=== PATIENT | male | born 1960 | race Caucasian/White ===

== ENCOUNTER 2017-11-18 19:57 | Observation (INO) | payer BC ==
[2017-11-18] MEDS ORDERED: Sodium Chloride 0.9% 2.5 ML Syringe FLUSH PRN (20:01)
[2017-11-18] MEDS ORDERED: Sodium Chloride 0.9% 10 ML Syringe FLUSH PRN (20:01)
[2017-11-18] MEDS ORDERED: Nitroglycerin 0.4 MG Tab.SL SL ONE (20:01)
--- NOTE | 2017-11-18 20:02 | EDM.PDOC ---
ED HPI GENERAL MEDICAL PROBLEM - General Stated Complaint: UNK Time Seen by Provider: 11/18/17 19:57 Source of Information: Reports: Patient, EMS History Limitations: Reports: No Limitations - History of Present Illness INITIAL COMMENTS - FREE TEXT/NARRATIVE: HISTORY AND PHYSICAL: History of present illness: [Patient comes to the emergency room and ambulance after complaining of left- sided chest pain. The pain started at 6:30 pm and has been constant. He describes it as a sharp pain just below his left breast. Maximum pain was 7 out of 10 when it first started. He took 2 nitroglycerin which gave minimal change in pain. Received 324 mg of aspirin and 1 nitro by EMS. He currently rates his pain as 4-5/10 and continues to describe it as sharp. Denies radiation of pain into his shoulder, neck or down his arm. No SOB, episodes of diaphoresis, nausea and vomiting. No swelling to extremities. History of coronary artery disease and stenting. One half to one pack of cigarettes per day.] Review of systems: As per history of present illness and below otherwise all systems reviewed and negative. Past medical history: As per history of present illness and as reviewed below otherwise noncontributory. Surgical history: As per history of present illness and as reviewed below otherwise noncontributory. Social history: No reported history of drug or alcohol abuse. Family history: As per history of present illness and as reviewed below otherwise noncontributory. Physical exam: HEENT: Atraumatic, normocephalic. Neck supple no lymphadenopathy. No JVD. Oral mucous membranes are pink and moist. Wears a hearing aid. Lungs: Clear to auscultation, breath sounds equal bilaterally. Chest is nontender. Pain is not reproducible w/ palpation of L chest wall. Heart: S1S2, regular, negative for clicks, rubs, or murmur. Abdomen: Soft, nondistended, nontender. Negative for masses, guarding and rebound. Negative for costovertebral tenderness. Pelvis: Stable nontender. Genitourinary: Deferred. Rectal: Deferred. Extremities: Atraumatic, no swelling or cyanosis to feet or lower legs. Neurovascular unremarkable. Neuro: Awake, alert, oriented. Motor and sensory unremarkable throughout. Exam nonfocal. Diagnostics: [CBC, CMP, troponin, PT/INR, chest x-ray, EKG] Therapeutics: [Nitro 0.4mg SL, Nitro paste 0.5mg topically] Impression: [chest pain] Plan: [Patient is pain free following 1 dose of SL nitro in the ER, and remains pain free while in ER. WBC 10.57, Hgb 16.8. INR 1.03. BUN 21, creatinine 1.1. Troponin <0.050. EKG is NSR. Chest xray shows no abnormality. Case is discussed with Dr. Miguel who agrees to accept patient for observation and further monitoring including telemetry. He is in agreement with today's plan for observation.] Definitive disposition and diagnosis as appropriate pending reevaluation and review of above. left chest Pain Score (Numeric/FACES): 5 - Related Data Allergies Allergy/AdvReac Type Severity Reaction Status Date / Time No Known Allergies Allergy Verified 01/01/16 09:00 Home Meds: Home Meds Atenolol/Chlorthalidone [Atenolol-Chlorthalidone 100-25] 25 mg PO DAILY [History] Gabapentin [Neurontin] 200 mg PO BEDTIME 12/29/15 [History] Potassium Chloride 20 mg PO BID 12/29/15 [History] Prasugrel HCl [Effient] 10 mg PO DAILY 12/29/15 [History] atorvaSTATin [Lipitor] 1 tab PO DAILY 12/29/15 [History] Albuterol [Proair HFA] 2 puff INH ASDIRECTED 01/01/16 [History] Inhaler Daily 11/18/17 [History] Past Medical History HEENT History: Reports: Hard of Hearing Cardiovascular History: Reports: CAD, High Cholesterol, Stents Musculoskeletal History: Reports: None - Past Surgical History HEENT Surgical History: Reports: Tonsillectomy, Other (See Below) Musculoskeletal Surgical History: Reports: Other (See Below) Social & Family History - Family History Family Medical History: Noncontributory - Tobacco Use Smoking Status *Q: Current Every Day Smoker Years of Tobacco use: 40 Packs/Tins Daily: 1 - Recreational Drug Use Recreational Drug Use: No ED ROS GENERAL - Review of Systems Review Of Systems: ROS reveals no pertinent complaints other than HPI. ED EXAM, GENERAL - Physical Exam Exam: See Below Course - Vital Signs Last Recorded V/S: Last Vital Signs Temp 98.6 F 11/18/17 21:45 Pulse 55 L 11/18/17 21:45 Resp 18 11/18/17 21:45 BP 113/68 11/18/17 21:45 Pulse Ox 94 L 11/18/17 21:45 - Orders/Labs/Meds Orders: Active Orders 24 hr Category Date Time Status EKG Documentation Completion [RC] STAT Care 11/18/17 20:01 Active Chest 2V [CR] Stat Exams 11/18/17 20:01 Taken Sodium Chloride 0.9% [Saline Flush] Med 11/18/17 20:01 Active 10 ml FLUSH ASDIRECTED PRN Sodium Chloride 0.9% [Saline Flush] Med 11/18/17 20:01 Active 2.5 ml FLUSH ASDIRECTED PRN Saline Lock Insert [OM.PC] Stat Oth 11/18/17 20:01 Ordered Medication Orders Sodium Chloride (Saline Flush) 10 ml FLUSH ASDIRECTED PRN PRN Reason: Keep Vein Open Sodium Chloride (Saline Flush) 2.5 ml FLUSH ASDIRECTED PRN PRN Reason: Keep Vein Open Labs: Laboratory Tests 11/18/17 11/18/17 11/18/17 Range/Units 20:10 20:10 20:10 WBC 10.57 (4.0-11.0) K/uL RBC 4.97 (4.50-5.90) M/uL Hgb 16.8 (13.0-17.0) g/dL Hct 47.4 (38.0-50.0) % MCV 95.4 (80.0-98.0) fL MCH 33.8 H (27.0-32.0) pg MCHC 35.4 (31.0-37.0) g/dL RDW Std Deviation 46.5 (28.0-62.0) fl RDW Coeff of Rajendra 13 (11.0-15.0) % Plt Count 188 (150-400) K/uL MPV 10.70 (7.40-12.00) fL Neut % (Auto) 60.0 (48.0-80.0) % Lymph % (Auto) 30.9 (16.0-40.0) % [place] % (Auto) 7.9 (0.0-15.0) % Eos % (Auto) 1.0 (0.0-7.0) % Baso % (Auto) 0.2 (0.0-1.5) % Neut # (Auto) 6.3 H (1.4-5.7) K/uL Lymph # (Auto) 3.3 H (0.6-2.4) K/uL [place] # (Auto) 0.8 (0.0-0.8) K/uL Eos # (Auto) 0.1 (0.0-0.7) K/uL Baso # (Auto) 0.0 (0.0-0.1) K/uL Nucleated RBC % 0.0 /100WBC Nucleated RBCs # 0 K/uL INR 1.03 Sodium 139 (136-148) mmol/L Potassium 3.9 (3.5-5.1) mmol/L Chloride 108 H (98-107) mmol/L Carbon Dioxide 22.3 (21.0-32.0) mmol/L BUN 21 H (7.0-18.0) mg/dL Creatinine 1.1 (0.8-1.3) mg/dL Est Cr Clr Drug Dosing 72.31 mL/min Estimated GFR (MDRD) > 60.0 ml/min Glucose 101 (74-106) mg/dL Calcium 9.0 (8.5-10.1) mg/dL Total Bilirubin 0.6 (0.2-1.0) mg/dL AST 15 (15-37) IU/L ALT 30 (14-63) IU/L Alkaline Phosphatase 85 (46-116) U/L Troponin I < 0.050 (0.000-0.056) ng/mL Total Protein 6.6 (6.4-8.2) g/dL Albumin 3.9 (3.4-5.0) g/dL Globulin 2.7 (2.0-3.5) g/dL Albumin/Globulin Ratio 1.4 (1.3-2.8) Meds: Medications Generic Name Dose Route Start Last Admin Trade Name Freq PRN Reason Stop Dose Admin Sodium Chloride 10 ml 11/18/17 20:01 Saline Flush FLUSH ASDIRECTED PRN Keep Vein Open Sodium Chloride 2.5 ml 11/18/17 20:01 Saline Flush FLUSH ASDIRECTED PRN Keep Vein Open Discontinued Medications Generic Name Dose Route Start Last Admin Trade Name Freq PRN Reason Stop Dose Admin Nitroglycerin 0.4 mg 11/18/17 20:01 11/18/17 20:10 Nitrostat SL 11/18/17 20:02 0.4 mg ONETIME ONE Administration Nitroglycerin 0.5 gm 11/18/17 21:27 11/18/17 21:43 Nitro-Bid 2% TOP 11/18/17 21:28 0.5 gm ONETIME ONE Administration Departure - Departure Time of Disposition: 21:24 Disposition: Refer to Observation Condition: Good Clinical Impression: Chest pain Qualifiers: Chest pain type: unspecified Qualified Code(s): R07.9 - Chest pain, unspecified - My Orders Last 24 Hours: My Active Orders 11/18/17 20:01 EKG Documentation Completion [RC] STAT Chest 2V [CR] Stat Sodium Chloride 0.9% [Saline Flush] 10 ml FLUSH ASDIRECTED PRN Sodium Chloride 0.9% [Saline Flush] 2.5 ml FLUSH ASDIRECTED PRN Saline Lock Insert [OM.PC] Stat - Assessment/Plan Last 24 Hours: My Active Orders 11/18/17 20:01 EKG Documentation Completion [RC] STAT Chest 2V [CR] Stat Sodium Chloride 0.9% [Saline Flush] 10 ml FLUSH ASDIRECTED PRN Sodium Chloride 0.9% [Saline Flush] 2.5 ml FLUSH ASDIRECTED PRN Saline Lock Insert [OM.PC] Stat
[2017-11-18 20:39] LABS: CHLORIDE,CL 108 mmol/L (98-107); SODIUM,NA 139 mmol/L (136-148)
[2017-11-18] MEDS ORDERED: Gabapentin 100 MG Cap PO SCH (21:00)
[2017-11-18] MEDS ORDERED: Nitroglycerin 2% Oint 1 GM UD Packet TOP ONE (21:27)
[2017-11-18] MEDS ORDERED: Morphine 4 MG/ML Syringe IVPUSH PRN (22:42)
[2017-11-18] MEDS ORDERED: Acetaminophen 325 MG Tab PO PRN (22:46)
[2017-11-18] MEDS: atorvaSTATin 40 MG Tab PO SCH (23:15)
[2017-11-19] MEDS: atorvaSTATin 40 MG Tab PO SCH (08:52)
[2017-11-19] MEDS ORDERED: Potassium Chloride 20 MEQ Tab.ER PO SCH (09:00)
[2017-11-19] MEDS ORDERED: PRASUGREL HCL 10 MG PO SCH (09:00)
[2017-11-19 13:10] VITALS: BP 130/74
--- NOTE | 2017-11-19 13:46 | PCM.HP ---
H&P History of Present Illness - General Admit Problem/Dx: Admission Diagnosis/Problem Admission Diagnosis/Problem Chest pain - History of Present Illness Initial Comments - Free Text/Narative: 57 yo male with pmh of coronary artery disease who presents to the ED with two hour history of chest pain. It is left sided. Patient has been physically exerting himself mor at work the past several days so he thinks it may be muscular in origin. Initial EKG and troponin were negative for signs of ischemia. left chest Pain Score (Numeric/FACES): 0 - Related Data Allergies/Adverse Reactions: Allergies Allergy/AdvReac Type Severity Reaction Status Date / Time No Known Allergies Allergy Verified 01/01/16 09:00 Home Medications: Home Meds Atenolol/Chlorthalidone [Atenolol-Chlorthalidone 100-25] 25 mg PO DAILY [History] Gabapentin [Neurontin] 200 mg PO BEDTIME 12/29/15 [History] Potassium Chloride 20 mg PO BID 12/29/15 [History] Prasugrel HCl [Effient] 10 mg PO DAILY 12/29/15 [History] atorvaSTATin [Lipitor] 1 tab PO DAILY 12/29/15 [History] Albuterol [Proair HFA] 2 puff INH ASDIRECTED 01/01/16 [History] Inhaler Daily 11/18/17 [History] Past Medical History HEENT History: Reports: Hard of Hearing Cardiovascular History: Reports: CAD, High Cholesterol, Stents Respiratory History: Reports: COPD Musculoskeletal History: Reports: None Neurological History: Reports: None Psychiatric History: Reports: None Endocrine/Metabolic History: Reports: None Hematologic History: Reports: None Oncologic (Cancer) History: Reports: None Dermatologic History: Reports: None - Infectious Disease History Infectious Disease History: Reports: Chicken Pox, Measles, Mumps - Past Surgical History HEENT Surgical History: Reports: Tonsillectomy, Other (See Below) Musculoskeletal Surgical History: Reports: Other (See Below) Social & Family History - Family History Family Medical History: Noncontributory HEENT: Reports: Hearing Impairment - Tobacco Use Smoking Status *Q: Current Every Day Smoker Years of Tobacco use: 40 Packs/Tins Daily: 1 Used Tobacco, but Quit: No Tobacco Use Comment: One packed in a day. - Caffeine Use Caffeine Use: Reports: Soda - Recreational Drug Use Recreational Drug Use: No H&P Review of Systems - Review of Systems: Review Of Systems: ROS reveals no pertinent complaints other than HPI. Exam - Exam Exam: See Below - Vital Signs Vital Signs: Last Vital Signs Temp 37.0 C 11/19/17 12:00 Pulse 55 L 11/19/17 12:00 Resp 16 11/19/17 12:00 BP 130/74 11/19/17 12:00 Pulse Ox 94 L 11/19/17 12:00 Weight: 76.566 kg - Exam General: Alert, Oriented HEENT: Mucosa Moist & [place] Lungs: Clear to Auscultation, Normal Respiratory Effort Cardiovascular: Regular Rate, Regular Rhythm GI/Abdominal Exam: Soft, Non-Tender Extremities: Non-Tender, No Pedal Edema Skin: Warm, Dry, Intact - Patient Data Lab Results Last 24 hrs: Laboratory Results - last 24 hr 11/18/17 11/18/17 11/18/17 Range/Units 20:10 20:10 20:10 WBC 10.57 (4.0-11.0) K/uL RBC 4.97 (4.50-5.90) M/uL Hgb 16.8 (13.0-17.0) g/dL Hct 47.4 (38.0-50.0) % MCV 95.4 (80.0-98.0) fL MCH 33.8 H (27.0-32.0) pg MCHC 35.4 (31.0-37.0) g/dL RDW Std Deviation 46.5 (28.0-62.0) fl RDW Coeff of Rajendra 13 (11.0-15.0) % Plt Count 188 (150-400) K/uL MPV 10.70 (7.40-12.00) fL Neut % (Auto) 60.0 (48.0-80.0) % Lymph % (Auto) 30.9 (16.0-40.0) % [place] % (Auto) 7.9 (0.0-15.0) % Eos % (Auto) 1.0 (0.0-7.0) % Baso % (Auto) 0.2 (0.0-1.5) % Neut # (Auto) 6.3 H (1.4-5.7) K/uL Lymph # (Auto) 3.3 H (0.6-2.4) K/uL [place] # (Auto) 0.8 (0.0-0.8) K/uL Eos # (Auto) 0.1 (0.0-0.7) K/uL Baso # (Auto) 0.0 (0.0-0.1) K/uL Nucleated RBC % 0.0 /100WBC Nucleated RBCs # 0 K/uL INR 1.03 Sodium 139 (136-148) mmol/L Potassium 3.9 (3.5-5.1) mmol/L Chloride 108 H (98-107) mmol/L Carbon Dioxide 22.3 (21.0-32.0) mmol/L BUN 21 H (7.0-18.0) mg/dL Creatinine 1.1 (0.8-1.3) mg/dL Est Cr Clr Drug Dosing 72.31 mL/min Estimated GFR (MDRD) > 60.0 ml/min Glucose 101 (74-106) mg/dL Calcium 9.0 (8.5-10.1) mg/dL Total Bilirubin 0.6 (0.2-1.0) mg/dL AST 15 (15-37) IU/L ALT 30 (14-63) IU/L Alkaline Phosphatase 85 (46-116) U/L Troponin I < 0.050 (0.000-0.056) ng/mL Total Protein 6.6 (6.4-8.2) g/dL Albumin 3.9 (3.4-5.0) g/dL Globulin 2.7 (2.0-3.5) g/dL Albumin/Globulin Ratio 1.4 (1.3-2.8) 11/19/17 11/19/17 Range/Units 02:05 08:02 WBC (4.0-11.0) K/uL RBC (4.50-5.90) M/uL Hgb (13.0-17.0) g/dL Hct (38.0-50.0) % MCV (80.0-98.0) fL MCH (27.0-32.0) pg MCHC (31.0-37.0) g/dL RDW Std Deviation (28.0-62.0) fl RDW Coeff of Rajendra (11.0-15.0) % Plt Count (150-400) K/uL MPV (7.40-12.00) fL Neut % (Auto) (48.0-80.0) % Lymph % (Auto) (16.0-40.0) % [place] % (Auto) (0.0-15.0) % Eos % (Auto) (0.0-7.0) % Baso % (Auto) (0.0-1.5) % Neut # (Auto) (1.4-5.7) K/uL Lymph # (Auto) (0.6-2.4) K/uL [place] # (Auto) (0.0-0.8) K/uL Eos # (Auto) (0.0-0.7) K/uL Baso # (Auto) (0.0-0.1) K/uL Nucleated RBC % /100WBC Nucleated RBCs # K/uL INR Sodium (136-148) mmol/L Potassium (3.5-5.1) mmol/L Chloride (98-107) mmol/L Carbon Dioxide (21.0-32.0) mmol/L BUN (7.0-18.0) mg/dL Creatinine (0.8-1.3) mg/dL Est Cr Clr Drug Dosing mL/min Estimated GFR (MDRD) ml/min Glucose (74-106) mg/dL Calcium (8.5-10.1) mg/dL Total Bilirubin (0.2-1.0) mg/dL AST (15-37) IU/L ALT (14-63) IU/L Alkaline Phosphatase (46-116) U/L Troponin I < 0.050 < 0.050 (0.000-0.056) ng/mL Total Protein (6.4-8.2) g/dL Albumin (3.4-5.0) g/dL Globulin (2.0-3.5) g/dL Albumin/Globulin Ratio (1.3-2.8) Result Diagrams: 11/18/17 20:10 11/18/17 20:10 Problem List Initiated/Reviewed/Updated: Yes Orders Last 24hrs: Active Orders 24 hr Category Date Time Status Patient Status [ADT] Stat ADT 11/18/17 21:24 Active Ready for Discharge [RC] PER UNIT ROUTINE Care 11/19/17 13:24 Ordered Telemetry Monitoring [Cardiac Monitoring] [RC] . Care 11/18/17 21:45 Active DIRECTED Cardiac [Heart Healthy Diet] [DIET] Diet 11/19/17 Breakfast Active Chest 2V [CR] Stat Exams 11/18/17 20:01 Taken Acetaminophen [Tylenol] Med 11/18/17 22:46 Active 650 mg PO Q4H PRN Atenolol/Chlorthalidone [Atenolol-Chlorthalidone 100-25 Med 11/19/17 09:00 Pending ] 25 mg PO DAILY Gabapentin [Neurontin] Med 11/18/17 21:00 Active 200 mg PO BEDTIME Morphine Med 11/18/17 22:42 Active 2 mg IVPUSH Q4H PRN Potassium Chloride [Klor-Con M20] Med 11/19/17 09:00 Active 20 meq PO BID Prasugrel HCl [Effient] Med 11/19/17 09:00 Pending 10 mg PO DAILY Sodium Chloride 0.9% [Saline Flush] Med 11/18/17 20:01 Active 10 ml FLUSH ASDIRECTED PRN Sodium Chloride 0.9% [Saline Flush] Med 11/18/17 20:01 Active 2.5 ml FLUSH ASDIRECTED PRN atorvaSTATin [Lipitor] Med 11/18/17 23:00 Active 40 mg PO DAILY Saline Lock Insert [OM.PC] Stat Oth 11/18/17 20:01 Ordered Medication Orders Acetaminophen (Tylenol) 650 mg PO Q4H PRN PRN Reason: Pain Atorvastatin Calcium (Lipitor) 40 mg PO DAILY [facility] Last Admin: 11/19/17 08:52 Dose: Admin: 11/18/17 23:15 Dose: Gabapentin (Neurontin) 200 mg PO BEDTIME [facility] Last Admin: 11/18/17 23:15 Dose: Morphine Sulfate (Morphine) 2 mg IVPUSH Q4H PRN PRN Reason: Pain Non-Formulary Medication (Atenolol/Chlorthalidone [Atenolol-Chlorthalidone 100- 25]) 25 mg PO DAILY [facility] Non-Formulary Medication (Prasugrel Hcl [Effient]) 10 mg PO DAILY [facility] Potassium Chloride (Klor-Con M20) 20 meq PO BID [facility] Last Admin: 11/19/17 08:51 Dose: Sodium Chloride (Saline Flush) 10 ml FLUSH ASDIRECTED PRN PRN Reason: Keep Vein Open Sodium Chloride (Saline Flush) 2.5 ml FLUSH ASDIRECTED PRN PRN Reason: Keep Vein Open Assessment/Plan Comment:: 57 yo male who was observed overnight for chest pain. He ruled out for acute coronary syndrome with serial negative cardiac enzymes. Patient was discharged home to follow up with Dr. Pratt in [facility].
--- NOTE | 2017-11-21 09:29 | CR ---
EXAM DATE: 11/18/17 PATIENT'S AGE: 57 Patient: STANLEY GONZALEZ Facility: [place], [place] Site . Site : [id number] Study: XRay Chest [id number]/6/[id number] 8:18:41 PM Ordering Physician: Doctor Rodriguez Final Report: INDICATION: chest pain TECHNIQUE: Chest 2 views. COMPARISON: 12/22/15 FINDINGS: Cardiovascular and mediastinum: Heart size and vasculature are normal in caliber and appearance. Mediastinum is within normal limits. Lungs and pleural spaces: Lungs are clear. No sign of infiltrate or mass. No sign of pleural effusion. No pneumothorax. Bones and soft tissues: No significant findings. IMPRESSION: Unremarkable chest. Dictated by: Enoc Max MD @ 11/18/2017 20:26:13 (Electronic Signature) Report Signed by Proxy. [facility] MED[facility] CENTERDesire
== END 2017-11-19 13:58 | disposition home or self-care (01) ==
LOC: MW.ED 19:57 → MW.MS 21:24
PROVIDERS: ADMIT Internal Medicine; ATTEND Internal Medicine
DX: R07.9 Chest pain, unspecified (principal); I25.10 Atherosclerotic heart disease of native coronary artery without angina pectoris; E78.00 Pure hypercholesterolemia, unspecified; J44.9 Chronic obstructive pulmonary disease, unspecified; F17.210 Nicotine dependence, cigarettes, uncomplicated; Z79.899 Other long term (current) drug therapy; Z95.5 Presence of coronary angioplasty implant and graft
CPT/HCPCS: 36415; 71046; 80053; 84484; 85025; 85610; 93005; 99285; A9270; 99283; G0378

== ENCOUNTER 2023-01-05 22:57 | Observation (INO) | payer BC ==
[2023-01-05 23:21] LABS: HEMATOCRIT 47.8 % (38.0-50.0); HEMOGLOBIN 16.6 g/dL (13.0-17.0); MEAN CORPUSCULAR HEMOGLOBIN 34.6 pg (27.0-32.0); MEAN CORPUSCULAR HGB CONC 34.7 g/dL (31.0-37.0); MEAN CORPUSCULAR VOLUME 99.6 fL (80.0-98.0); NRBC ABSOLUTE 0 K/uL; PLATELET COUNT,PLT 211 K/uL (150-400); WHITE BLOOD CELL COUNT,WBC 10.16 K/uL (4.0-11.0)
[2023-01-05 23:53] LABS: BAND ABSOLUTE MAN 0.2; BAND PERCENT MAN 2 %; EOSINOPHILS ABSOLUTE MAN 0.3 (0.0-0.7); EOSINOPHILS PERCENT MAN 3 % (0.0-7.0); LYMPHOCYTES ABSOLUTE MAN 3.5 (0.6-2.4); LYMPHOCYTES PERCENT MAN 34 % (16.0-40.0); SEG NEUTROPHILS PERCENT MAN 30 % (48.0-80.0)
[2023-01-05 23:54] LABS: MONOCYTES ABSOLUTE MAN 3.1 (0.0-0.8); MONOCYTES PERCENT MAN 31 % (0.0-15.0)
[2023-01-06 00:42] LABS: A/G RATIO 1.5 (0.9-1.6); ALBUMIN 4.2 g/dL (3.4-5.0); BILIRUBIN TOTAL 0.6 mg/dL (0.2-1.0); CALCIUM 8.7 mg/dL (8.5-10.1); CARBON DIOXIDE,CO2 22.9 mmol/L (21.0-32.0); EST CRCL DRUG DOSING (CG) 74.63 mL/min; POTASSIUM,K 3.9 mmol/L (3.5-5.1)
[2023-01-06] MEDS ORDERED: Potassium Chloride 20 MEQ Tab.ER PO SCH (08:00)
[2023-01-06] MEDS ORDERED: Enoxaparin 40 MG/0.4 ML Syringe SUBCUT SCH (12:45)
[2023-01-06 13:54] VITALS: BP 138/70; PULSE 61
[2023-01-06] MEDS ORDERED: atorvaSTATin 40 MG Tab PO SCH (21:00)
[2023-01-06] MEDS ORDERED: Atenolol 25 MG Tab PO SCH (21:00)
[2023-01-06] MEDS ORDERED: PRASUGREL 10 MG PO SCH (21:00)
== END 2023-01-06 14:14 | disposition home or self-care (01) ==
LOC: MW.ED 22:57 → MW.MS 01-06 04:08
PROVIDERS: ADMIT Internal Medicine; ATTEND Internal Medicine
DX: R07.2 Precordial pain (principal); I10 Essential (primary) hypertension; I25.10 Atherosclerotic heart disease of native coronary artery without angina pectoris; J45.909 Unspecified asthma, uncomplicated; E78.00 Pure hypercholesterolemia, unspecified; F17.210 Nicotine dependence, cigarettes, uncomplicated; Z95.5 Presence of coronary angioplasty implant and graft; Z90.89 Acquired absence of other organs; Z79.899 Other long term (current) drug therapy
CPT/HCPCS: 36415; 71045; 80053; 84484; 85025; 93005; 96372; 99285; A9270; G0378; J1650